=== PATIENT | female | born 2000 | race Caucasian/White ===

== ENCOUNTER 2021-04-16 05:14 | Emergency (ER) | payer SELFPAY ==
[2021-04-16] MEDS ORDERED: Famotidine/PF 20 mg/2ml Vial ONE (06:01)
[2021-04-16] MEDS ORDERED: Ondansetron PF 4 MG/2 ML Vial ONE (06:01)
[2021-04-16 06:07] LABS: #Eosinphils 0.1 10x3/uL (0.0-0.5); #Monocytes 0.8 10x3/uL (0.0-1.1); #Neutrophils 14.7 10x3/uL (1.5-8.4); %Basophils 0.2 % (0.0-2.0); %Eosinophils 0.3 % (0.0-6.0); %Lymphocytes 6.5 % (18.0-47.0); %Monocytes 4.6 % (0.0-10.0); %Neutrophils 88.1 % (40.0-75.0); Hemoglobin 14.5 g/dL (12.0-15.5); Mean Corpuscular HGB CONC 33.7 g/dL (32.0-36.0); Mean Platelet Volume 11.5 fl (7.4-10.4); Platelet Count 159 10x3/uL (150-450); RBC Distribution Width 11.9 % (11.5-14.5); Red Blood Cell (RBC) Count 4.83 10x6/uL (3.90-5.03); White Blood Cell (WBC) Count 16.7 10x3/uL (3.5-10.5)
[2021-04-16 06:18] LABS: BHCG - Serum Negative (NEGATIVE); Pregs Control Background? CLEAR/WHITE (CLR/WHITE); Pregs Control Bar Appear? YES (CONTROL BAR)
[2021-04-16 06:24] LABS: ALT (SGPT) 14 U/L (8-55); AST (SGOT) 16 U/L (5-34); Albumin 4.6 g/dL (3.5-5.0); Alkaline Phosphatase 39 U/L (40-110); Anion Gap 15 mmol/L (10-20); BUN (Urea Nitrogen) 13 mg/dL (7.0-18.7); Bilirubin, Total 1.2 mg/dL (0.2-1.2); Calc. Creatinine Clearance 0 mL/min (70-130); Calcium 9.3 mg/dL (7.8-10.44); Carbon Dioxide 22 mmol/L (22-29); Chloride 108 mmol/L (98-107); Globulin 3.4 g/dL (2.4-3.5); Glucose 114 mg/dL (70-105); Lipase 16 U/L (8-78); Potassium 4.1 mmol/L (3.5-5.1); Sodium 141 mmol/L (136-145)
[2021-04-16] MEDS ORDERED: Dicyclomine 20 MG TAB ONE (06:26)
== END 2021-04-16 06:11 | disposition home or self-care (01) ==
LOC: CSHERS 05:14
DX: R11.2 Nausea with vomiting, unspecified (principal); R10.84 Generalized abdominal pain
CPT/HCPCS: 80053; 83690; 84703; 85025; 96374; 96375; J2405; S0028

== ENCOUNTER 2024-06-05 14:32 | Inpatient (IN) | payer BC, OTHER ==
[2024-06-05 15:01] VITALS: BMI 25.8
[2024-06-05 15:04] LABS: Fetal Membranes Rupture RUPTURE DETECTED (No Rupture)
[2024-06-05] MEDS ORDERED: Promethazine HCl 25 MG/ML VIAL IM PRN (15:44)
[2024-06-05] MEDS ORDERED: Diphenoxylate HCl/Atropine Tablet PO PRN (15:44)
[2024-06-05] MEDS ORDERED: hydrALAZINE 20 MG/ML VIAL SLOW IVP PRN (15:44)
[2024-06-05] MEDS ORDERED: fentaNYL 50 mcg/mL 1 mL Vial SLOW IVP PRN (15:44)
[2024-06-05] MEDS ORDERED: Docusate 100 MG CAP PO PRN (15:44)
[2024-06-05] MEDS ORDERED: Ondansetron PF 4 MG/2 ML Vial IVP PRN (15:44)
[2024-06-05] MEDS ORDERED: Carboprost 250 MCG/ML AMP IM PRN (15:44)
[2024-06-05] MEDS ORDERED: Acetaminophen 500 MG TAB PO PRN (15:44)
[2024-06-05] MEDS ORDERED: Zolpidem Tartrate 5 MG TAB PO PRN (15:44)
[2024-06-05 17:07] LABS: Hematocrit 34.5 % (34.9-44.5); Hemoglobin 11.5 g/dL (12.0-15.5); Mean Corpuscular HGB CONC 33.3 g/dL (32.0-36.0); Mean Corpuscular Hemoglobin 29.1 pg (27.0-33.0); Mean Corpuscular Volume 87.3 fL (81.6-98.3); Mean Platelet Volume 11.6 fL (7.4-10.4); Platelet Count 192 10x3/uL (150-450); RBC Distribution Width 12.5 % (11.5-14.5); Red Blood Cell (RBC) Count 3.95 10x6/uL (3.90-5.03); White Blood Cell (WBC) Count 16.48 10x3/uL (3.5-10.5)
[2024-06-05 17:59] LABS: HBsAg Index 0.24 S/CO (0-0.99); Hep B Surf Ag - L&D Non-Reactive S/CO (NonReactive); Syphilis Antibody Nonreactive (Nonreactive); Syphilis Antibody Index 0.12 S/CO (<1.00 Non-Reactive)
[2024-06-05 22:32] LABS: HIV (1/2) Antibody/Antigen Non-Reactive (NonReactive); HIV 1/2 INDEX 0.12 S/CO (<1.00)
[2024-06-05] MEDS: Oxytocin 30 units/NS 500 ML 500 ML IV SCH (23:55)
[2024-06-06] MEDS: Lidocaine 1% (PF) 30 ML VIAL SC PRN (00:01)
[2024-06-06] MEDS: Misoprostol 200 MCG TAB PR PRN (00:10)
[2024-06-06] MEDS: Methylergonovine 0.2 MG/ML VIAL IM PRN (00:10)
[2024-06-06] MEDS ORDERED: diphenhydrAMINE 25 MG CAP PO PRN (00:17)
[2024-06-06] MEDS ORDERED: Milk Of Magnesia 30 ML UDCUP PO PRN (00:17)
[2024-06-06] MEDS ORDERED: hydrALAZINE 20 MG/ML VIAL SLOW IVP PRN (00:17)
[2024-06-06] MEDS ORDERED: Bisacodyl 10 MG SUPP PR PRN (00:17)
[2024-06-06 01:27] LABS: D-Dimer Test 5.97 mcg/mL (0.19-0.50); INR-International Normal Ratio 0.9; PTT 23.9 sec (22.0-33.0); Prothrombin Time 10.3 sec (9.5-12.1)
[2024-06-06 02:09] LABS: Hematocrit 35.1 % (34.9-44.5); Hemoglobin 11.6 g/dL (12.0-15.5); Mean Corpuscular Hemoglobin 28.6 pg (27.0-33.0); Mean Corpuscular Volume 86.7 fL (81.6-98.3); Mean Platelet Volume 11.9 fL (7.4-10.4); Platelet Count 193 10x3/uL (150-450); RBC Distribution Width 12.4 % (11.5-14.5); Red Blood Cell (RBC) Count 4.05 10x6/uL (3.90-5.03); White Blood Cell (WBC) Count 23.68 10x3/uL (3.5-10.5)
[2024-06-06] MEDS: Tranexamic Acid 1,000 MG/10 ML VIAL ONE ×2 (02:10→08:51)
[2024-06-06] MEDS: Boostrix 0.5 ML (Tdap) VIAL (>/=7 yrs of age) IM ONE (08:51)
[2024-06-06] MEDS: Ibuprofen 800 MG TAB PO SCH ×2 (09:00→10:48)
[2024-06-06] MEDS: Docusate 100 MG CAP PO SCH (09:01)
[2024-06-06] MEDS: Ferrous Sulfate 325 MG TAB PO SCH (09:03)
[2024-06-06] MEDS ORDERED: Witch Hazel 100 PAD JAR TOP PRN (12:18)
[2024-06-06] MEDS ORDERED: Benzocaine-Menthol 82.5 ML CAN TOP PRN (12:19)
[2024-06-06] MEDS: Benzocaine-Menthol 82.5 ML CAN TOP PRN (13:31)
[2024-06-06] MEDS: Witch Hazel 100 PAD JAR TOP PRN (13:31)
[2024-06-06 23:46] LABS: #Basophils 0.07 10x3/uL (0.0-0.2); #Eosinophils 0.06 10x3/uL (0.0-0.5); #Monocytes 1.49 10x3/uL (0.0-1.1); #Neutrophils 17.83 10x3/uL (1.5-8.4); %Basophils 0.3 % (0.0-2.0); %Eosinophils 0.3 % (0.0-6.0); %Lymphocytes 15.5 % (18.0-47.0); %Monocytes 6.4 % (0.0-10.0); %Neutrophils 76.2 % (40.0-75.0); Hematocrit 33.1 % (34.9-44.5); Hemoglobin 10.7 g/dL (12.0-15.5); Mean Corpuscular HGB CONC 32.3 g/dL (32.0-36.0); Mean Corpuscular Hemoglobin 28.7 pg (27.0-33.0); Mean Corpuscular Volume 88.7 fL (81.6-98.3); Mean Platelet Volume 11.3 fL (7.4-10.4); Platelet Count 177 10x3/uL (150-450); RBC Distribution Width 12.6 % (11.5-14.5); Red Blood Cell (RBC) Count 3.73 10x6/uL (3.90-5.03); White Blood Cell (WBC) Count 23.39 10x3/uL (3.5-10.5)
[2024-06-07] MEDS: Ibuprofen 800 MG TAB PO SCH (05:58)
[2024-06-07 07:30] VITALS: BP 92/53; TEMP 97.6
[2024-06-07] MEDS: Prenatal Vitamin 1 TAB PO SCH (08:50)
== END 2024-06-07 16:15 | disposition home or self-care (01) | DRG 806 ==
LOC: CSHLD/OP 14:32 → CSHLD 15:18 → CSHPP 06-06 08:15
PROVIDERS: ADMIT Obstetrics & Gynecology; ATTEND Obstetrics & Gynecology
PROC: 10E0XZZ Delivery of Products of Conception, External Approach (ICD-10-PCS; principal; 2024-06-05)
PROC: 0UQMXZZ Repair Vulva, External Approach (ICD-10-PCS; 2024-06-05)
PROC: 0UQGXZZ Repair Vagina, External Approach (ICD-10-PCS; 2024-06-05)
DX: O42.02 Full-term premature rupture of membranes, onset of labor within 24 hours of rupture (principal); O71.4 Obstetric high vaginal laceration alone; Z37.0 Single live birth; Z3A.38 38 weeks gestation of pregnancy; O71.82 Other specified trauma to perineum and vulva
CPT/HCPCS: 36415; 84112; 85025; 85027; 85049; 85300; 85362; 85384; 85610; 85730; 86780; 86850; 86900; 86901; 87340; 87389; 99285; J2210; J2590